=== PATIENT | female | born 1990 | race Caucasian/White ===

== ENCOUNTER 2025-02-14 09:28 | Emergency (ER) | payer MEDICAID, OTHER ==
[~2025-02-14] VITALS: Ht 165.1 cm; Wt 70.0 kg
[2025-02-14 09:34] VITALS: O2SAT 97
[2025-02-14] MEDS: IBUPROFEN 600MG TABLET PO ONE (10:07)
[2025-02-14] MEDS: ACETAMINOPHEN 325MG TABLET PO ONE (10:23)
[2025-02-14] MEDS: ONDANSETRON 4MG ODT PO ONE (11:19)
[2025-02-14 11:58] LABS: INFLUENZA TYPE A Presumptive Negative (Pres. Neg.); INFLUENZA TYPE B Presumptive Negative (Pres. Neg.)
[2025-02-14 11:59] LABS: RESPIRATORY SYNCYTIAL VIRUS Not Detected (Not Detectd)
[2025-02-14 12:10] VITALS: BP 125/84; PULSE 105; RESP 19; TEMP 37.1; O2SAT 100
[2025-02-14] MEDS ORDERED: ONDA-239 PO (12:14)
== END 2025-02-14 12:32 | disposition home or self-care (01) ==
LOC: ER 09:28
DX: B34.9 Viral infection, unspecified (principal)
CPT/HCPCS: 99284; 71045; 81025; 87420; 87804 ×2; Q0162